=== PATIENT | female | born 1995 | race Caucasian/White ===

== ENCOUNTER 2023-09-01 13:17 | Outpatient (CLI) | payer MEDICAID, SELFPAY ==
[2023-09-01 14:31] LABS: 25 Hydroxy Vitamin D 45 ng/mL (30-100); Alanine Aminotransferase 32 U/L (0-33); Albumin Level 4.5 g/dL (3.5-5.2); Alkaline Phosphatase 85 U/L (35-105); Anion Gap 14.1 (5-19); Aspartate Amino Transferase 22 U/L (0-32); Blood Urea Nitrogen 19 mg/dL (6-20); Calcium 9.1 mg/dL (8.5-10.5); Carbon Dioxide 27 mmol/L (22-29); Chloride 102 mmol/L (98-107); Globulin 3.4 g/dL (1.3-4.6); Glomerular Filtration Rate 76.3 mL/min (90-130); Glucose 97 mg/dL (65-115); Osmolality Calculated 290 mOsm/kg (285-295); Potassium 4.1 mmol/L (3.5-5.1); Sodium 139 mmol/L (136-145); Thyroid Stimulating Hormone 1.32 uIU/mL (0.27-4.20); Total Bilirubin 0.6 mg/dL (0.15-1.2); Total Protein 7.9 g/dL (6.6-8.7); Vitamin B12 875 pg/mL (232-1245)
== END 2023-09-01 13:18 | disposition home or self-care (01) ==
PROVIDERS: Family Provider Internal Medicine; PCP Nurse Practitioner; Visit Provider Nurse Practitioner
DX: E55.9 Vitamin D deficiency, unspecified (principal)
CPT/HCPCS: 36415; 80053; 82306; 82607; 83735; 84443

== ENCOUNTER → 2023-09-22 13:45 | Outpatient (BNVA) | payer SELFPAY | PROVIDERS: Family Provider Internal Medicine; PCP Nurse Practitioner; Visit Provider Podiatrist Foot & Ankle Surgery | DX: L60.0 Ingrowing nail (principal); L60.3 Nail dystrophy | CPT/HCPCS: 99213 ==